=== PATIENT | female | born 1995 ===

== ENCOUNTER 2020-11-29 14:02 | Outpatient (REF) | payer MEDICAID, SELFPAY ==
[2020-11-30 08:52] LABS: BV Int Neg Control Negative (Negative); BV Int Pos Control Positive (Positive)
[2020-12-01 02:42] LABS: C. trachomatis RNA TMA NOT DETECTED (NOT DETECTED); N. gonorrhoeae RNA TMA NOT DETECTED (NOT DETECTED)
== END 2020-11-29 14:03 | disposition home or self-care (01) ==
LOC: HO.LAB 14:02
PROVIDERS: Visit Provider Advanced Practice Midwife
DX: Z01.419 Encounter for gynecological examination (general) (routine) without abnormal findings (principal); Z20.2 Contact with and (suspected) exposure to infections with a predominantly sexual mode of transmission
CPT/HCPCS: 82710; 87480; 87491; 87510; 87591; 87660

== ENCOUNTER → 2020-12-21 13:54 | Outpatient (BNVA) | payer MEDICAID, SELFPAY | PROVIDERS: Visit Provider Advanced Practice Midwife | DX: R03.0 Elevated blood-pressure reading, without diagnosis of hypertension (principal); Z34.90 Encounter for supervision of normal pregnancy, unspecified, unspecified trimester | CPT/HCPCS: 81025; 99212 ==

== ENCOUNTER → 2021-01-25 10:42 | Outpatient (BNVA) | payer MEDICAID, SELFPAY | PROVIDERS: Visit Provider Advanced Practice Midwife | DX: O09.899 Supervision of other high risk pregnancies, unspecified trimester (principal); O09.291 Supervision of pregnancy with other poor reproductive or obstetric history, first trimester; O10.919 Unspecified pre-existing hypertension complicating pregnancy, unspecified trimester | CPT/HCPCS: 81003; 99212 ==

== ENCOUNTER 2021-01-27 11:11 | Outpatient (REF) | payer MEDICAID, SELFPAY ==
--- NOTE | ~2021-01-27 | US_ITS ---
EXAMINATION: OBSTETRICAL ULTRASOUND, FIRST TRIMESTER HISTORY: 25-year-old at the 12.0 weeks of gestation NT screening COMPARISON: 12/25/2019 TECHNIQUE: Real time transabdominal imaging with color and M-mode Doppler. FINDINGS: A single, live IUP CRL of 50.0 mm c/w 11.6wks is noted. Heart Rate: 163 beats per minute. Normal yolk sac seen. NT was 1.39.mm. NB Present The embryo appears sonographically wnl for this GA. The left ovary is within normal limits. The right ovary was not seen. GESTATIONAL AGE: 1. Established GA: 12.0 wks 2. GA from [facility]: 11.6 wks ESTIMATED DATE OF DELIVERY: 1. Established RIVKA: 08/11/2021 2. RIVKA from [facility]: 08/12/2021 US/US OB 1T nuc measure IMPRESSION: 1. A single live IUP 2. Size equals dates 3. NT of 1.39 mm MFM Consultation: I reviewed the ultrasound findings along with significance of NT measurement. The NT of less than 3mm is generally reassuring. However, the sensitivity for T21 detection is only 60%. I reviewed the availability of serum aneuploidy screening which includes cell-free DNA and placental protein based tests. I discussed the sensitivity, false-positive rate, and other limitations associated with each test. I also reviewed the availability of invasive diagnostic tests that are associated small but definite risk of miscarriage. We also reviewed the differences between screening tests and diagnostic tests. After our discussion, she opted for the First trimester screening that is based on cell-free DNA or non-invasive testing (NIPT). The result will be faxed to your office in approximately 7 days. A follow up at 18 weeks for survey has been scheduled. Thank you very much for this referral. Majority of this visit was spent reviewing her care and counselling her in face to face time: Time spent 30 min.
== END 2021-01-27 11:12 | disposition home or self-care (01) ==
LOC: HO.US 11:11
PROVIDERS: Visit Provider Advanced Practice Midwife
DX: Z36.82 Encounter for antenatal screening for nuchal translucency (principal); O09.291 Supervision of pregnancy with other poor reproductive or obstetric history, first trimester; O13.1 Gestational [pregnancy-induced] hypertension without significant proteinuria, first trimester; Z3A.12 12 weeks gestation of pregnancy
CPT/HCPCS: 76813

== ENCOUNTER → 2021-02-13 13:59 | Outpatient (BNVA) | payer MEDICAID, SELFPAY | PROVIDERS: Visit Provider Advanced Practice Midwife ==

== ENCOUNTER → 2021-02-17 13:01 | Outpatient (BNVA) | payer MEDICAID, SELFPAY | PROVIDERS: Visit Provider Advanced Practice Midwife ==

== ENCOUNTER → 2021-07-24 15:18 | Outpatient (BNVA) | payer MEDICAID, SELFPAY | PROVIDERS: Visit Provider Advanced Practice Midwife | DX: N92.6 Irregular menstruation, unspecified (principal) | CPT/HCPCS: 81025; 99212 ==

== ENCOUNTER 2021-07-28 10:53 | Outpatient (REF) | payer MEDICAID, SELFPAY ==
--- NOTE | ~2021-07-28 | US_ITS ---
EXAMINATION: OBSTETRICAL ULTRASOUND, FIRST TRIMESTER HISTORY: 26-year-old with the uncertain dates Viability LMP: 06/04/2021 COMPARISON: None TECHNIQUE: Real time transabdominal imaging with color and M-mode Doppler. FINDINGS: A single, live IUP CRL of 10.2 mm c/w 7.1wks is noted. Heart Rate: 140 beats per minute. Both maternal ovaries are seen and appear normal. GESTATIONAL AGE: 1. GA from [facility]: 7.5 wks 2. GA from [facility]: 7.1 wks ESTIMATED DATE OF DELIVERY: 1. RIVKA from [facility]: 03/11/2022 2. RIVKA from [facility]: 03/15/2022 US/US OB pelvic and transvaginal IMPRESSION: 1. A single live IUP 2. CRL corresponds to 7.1 weeks confirming her LMP based RIVKA of 03/11/2022. 3. Normal ovaries and adnexa 4. No free fluid in the cul-de-sac No specific ultrasound followup appears needed at this time. The patient was advised that ultrasound cannot guarantee the of a normal infant. Thank you very much for this referral. This note was generated with a voice recognition program. Please excuse any errors which may have been overlooked during my review of this note. Sometimes these errors may affect the content or meaning of a given sentence.
== END 2021-07-28 10:54 | disposition home or self-care (01) ==
LOC: HO.US 10:53
PROVIDERS: Visit Provider Advanced Practice Midwife
DX: Z34.91 Encounter for supervision of normal pregnancy, unspecified, first trimester (principal)
CPT/HCPCS: 76801; 76817

== ENCOUNTER → 2021-08-16 09:54 | Outpatient (BNVA) | payer MEDICAID, SELFPAY | PROVIDERS: Visit Provider Advanced Practice Midwife | DX: Z34.81 Encounter for supervision of other normal pregnancy, first trimester (principal); Z3A.09 9 weeks gestation of pregnancy | CPT/HCPCS: 99212 ==

== ENCOUNTER 2021-08-25 13:04 | Outpatient (REF) | payer MEDICAID, SELFPAY ==
--- NOTE | ~2021-08-25 | US_ITS ---
EXAMINATION: OBSTETRICAL ULTRASOUND, FIRST TRIMESTER HISTORY: A 26-year-old at 11.5 weeks of gestation NT screening COMPARISON: 07/28/2021 TECHNIQUE: Real time transabdominal imaging with color and M-mode Doppler. FINDINGS: A single, live IUP CRL of 45.3 mm c/w 11.3wks is noted. Heart Rate: 158 beats per minute. Normal yolk sac seen. NT was 0.7.mm. NB Present The embryo appears sonographically wnl for this GA. Both maternal ovaries are seen and appear normal. GESTATIONAL AGE: 1. Established GA: 11.5 wks 2. GA from A[facility]: 11.3 wks ESTIMATED DATE OF DELIVERY: 1. Established RIVKA: 03/11/2022 2. RIVKA from [facility]: 03/13/2022 US/US OB 1T nuc measure IMPRESSION: 1. A single live IUP 2. Size equals dates 3. NT of 0.7 mm MFM Consultation: I reviewed the ultrasound findings along with significance of NT measurement. The NT of less than 3mm is generally reassuring. However, the sensitivity for T21 detection is only 60%. I reviewed the availability of serum aneuploidy screening which includes cell-free DNA and placental protein based tests. I discussed the sensitivity, false-positive rate, and other limitations associated with each test. I also reviewed the availability of invasive diagnostic tests that are associated small but definite risk of miscarriage. We also reviewed the differences between screening tests and diagnostic tests. After our discussion, she opted for the First trimester screening that is based on cell-free DNA or non-invasive testing (NIPT). The result will be faxed to your office in approximately 7 days. A follow up at 18 weeks for survey has been scheduled. Thank you very much for this referral. Total time 30 minutes. The time spent was devoted to counseling the patient about the disease and diagnosis, coordinating care including reviewing her records, pertinent lab data and studies, as well as discussing diagnostic evaluation and workup, plan therapeutic interventions and future disposition of care. This includes any additional research needed to obtain further information in formulating the plan of care of this patient. This note was generated with a voice recognition program. Please excuse any errors which may have been overlooked during my review of this note. Sometimes these errors may affect the content or meaning of a given sentence.
== END 2021-08-25 13:05 | disposition home or self-care (01) ==
LOC: HO.US 13:04
PROVIDERS: Visit Provider Advanced Practice Midwife
DX: Z32.01 Encounter for pregnancy test, result positive (principal)
CPT/HCPCS: 76813

== ENCOUNTER 2021-08-28 09:21 | Outpatient (REF) | payer MEDICAID, SELFPAY ==
[2021-08-28 16:17] LABS: CT PCR NOT DETECTED (Not Detect.); NG PCR NOT DETECTED (Not Detect.)
[2021-08-29 09:47] LABS: BV Int Neg Control Negative (Negative); BV Int Pos Control Positive (Positive)
== END 2021-08-28 09:22 | disposition home or self-care (01) ==
LOC: HO.LAB 09:21
PROVIDERS: Visit Provider Advanced Practice Midwife
DX: O16.1 Unspecified maternal hypertension, first trimester (principal); Z3A.12 12 weeks gestation of pregnancy; Z87.59 Personal history of other complications of pregnancy, childbirth and the puerperium
CPT/HCPCS: 87480; 87491; 87510; 87591; 87660; 88142; 99212

== ENCOUNTER → 2021-09-25 13:10 | Outpatient (BNVA) | payer MEDICAID, SELFPAY | PROVIDERS: Visit Provider Obstetrics & Gynecology | DX: Z34.82 Encounter for supervision of other normal pregnancy, second trimester (principal); Z3A.16 16 weeks gestation of pregnancy | CPT/HCPCS: 99212 ==

== ENCOUNTER 2021-10-20 12:28 | Outpatient (REF) | payer MEDICAID, SELFPAY ==
--- NOTE | ~2021-10-20 | US_ITS ---
EXAMINATION: US OBSTETRICAL CLINICAL INFORMATION: 26-year-old at 19.5 weeks of gestation Screening for anomaly COMPARISON: 08/25/2021 TECHNIQUE: Real-time transabdominal ultrasound was performed using C1-5 megahertz transducer. FINDINGS: A single, active, fetus is seen in vertex presentation. The placenta is posterior without previa, and the amniotic fluid volume is wnl. MEASUREMENTS: 1. Biparietal Diameter: 4.3 cm; 19.1 wks 2. Occipital Frontal Diameter: 5.6 cm 3. Head Circumference: 16.0 cm; 18.6 wks 4. Abdominal Circumference: 13.4 cm; 19.0 wks 5. Femur Length: 3.2 cm; 20.1 wks 6. Humerus Length: 3.0 cm; 19.6 wks 7. Tibia Length: 2.9 cm; 20.5 wks 8. Ulna Length: 2.7 cm; 20.1 wks 9. Lateral ventricle: 0.7 cm 10. Cerebellum: 1.9 cm; 19.2 wks 11. Cisterna Magna: 0.37 cm 12. Nuchal Fold: 4.1 mm 13. Heart Rate: 142 beats per minute Rt ovary: normal Lt ovary: normal Cervical length 4.5 cm on T/A. GESTATIONAL AGE: 1. Established GA: 19.5 wks 2. GA from [facility]: 19.2 wks ESTIMATED DATE OF DELIVERY: 1. Established RIVKA: 03/11/2022 2. RIVKA from [facility]: 03/14/2022 ANATOMY: The views of the CSP, 3 vessel umbilical cord were suboptimal due to position. Right renal pelvis: 0.5 cm consistent with pyelectasis. The visualized anatomy includes but not limited to: 1. Cranium: Normal 2. Intracranial anatomy: lateral ventricles, choroid plexus, cerebellum, posterior fossa, third and fourth ventricles. 3. face: orbits, lip/palate, profile, nasal bone 4. Heart: four-chamber view of the heart, ventricular septum, foramen ovale, pulmonary vein, left and right outflow tracts, three-vessel view, 3 vessel trachea view, aortic and ductal arches, situs.. 5. Diaphragm: Normal 6. Abdominal wall: Normal 7. Cord Insertion: Normal 8. Spine: Cervical, thoracic, lumbar, sacral. 9. Stomach: Normal size and shape 10. Right Kidney: Pyelectasis 11. Left Kidney: Normal 12. 3 vessel cord: Normal 13. Upper extremity: Open hands, fifth digit. 14. Lower extremity: Tibia, fibula, bilateral feet. 15. Bladder: Normal 16. Genitalia: Female, patient aware US/US OB /maternal detail IMPRESSION: 1. Single, living, intrauterine with appropriate biometry. 2. Limited the survey due to position. The right pyelectasis. DISCUSSION: I reviewed today's ultrasound findings. We discussed the limitations of ultrasound in diagnosing aneuploidy and other congenital abnormalities. I reviewed the differences between screening test and diagnostic test. Amniocentesis was discussed and declined. I reviewed the clinical significance of pyelectasis seen at this age. The sonographic findings today were suggestive of UPJ reflux. I reassured her that this is a completely benign finding and in the majority of cases, it will resolve spontaneously by term. She was informed that the baseline incidence of congenital abnormalities is approximately 3-5%. Not all these conditions are diagnosable in utero. RECOMMENDATIONS: 1. Follow-up in 4 weeks (scheduled). Thank you for allowing me to participate in her care. Total time 30 minutes. The time spent was devoted to counseling the patient about the disease and diagnosis, coordinating care including reviewing her records, pertinent lab data and studies, as well as discussing diagnostic evaluation and workup, plan therapeutic interventions and future disposition of care. This includes any additional research needed to obtain further information in formulating the plan of care of this patient. This note was generated with a voice recognition program. Please excuse any errors which may have been overlooked during my review of this note. Sometimes these errors may affect the content or meaning of a given sentence.
== END 2021-10-20 12:29 | disposition home or self-care (01) ==
LOC: HO.US 12:28
PROVIDERS: Visit Provider Advanced Practice Midwife
DX: O35.9XX0 Maternal care for (suspected) fetal abnormality and damage, unspecified, not applicable or unspecified (principal); Z3A.19 19 weeks gestation of pregnancy
CPT/HCPCS: 76811

== ENCOUNTER → 2021-10-23 08:52 | Outpatient (BNVA) | payer MEDICAID, SELFPAY | PROVIDERS: Visit Provider Obstetrics & Gynecology | DX: O36.8920 Maternal care for other specified fetal problems, second trimester, not applicable or unspecified (principal); Z3A.20 20 weeks gestation of pregnancy | CPT/HCPCS: 99212 ==

== ENCOUNTER 2021-11-17 11:01 | Outpatient (REF) | payer MEDICAID, SELFPAY ==
--- NOTE | ~2021-11-17 | US_ITS ---
EXAMINATION: OBSTETRICAL ULTRASOUND, Follow up HISTORY: 26-year-old at 23.5 weeks of gestation Right pyelectasis History of preeclampsia Suboptimal views of the CSP and 3 vessel trachea view COMPARISON: 10/20/2021 TECHNIQUE: Real time transabdominal imaging with color and M-mode Doppler. PRESENTATION: Vertex PLACENTA LOCATION: Posterior without previa AMNIOTIC FLUID: Normal MEASUREMENTS: 1. Biparietal Diameter: 5.4 cm; 22.5 wks 2. Head Circumference: 19.9 cm; 22.1 wks 3. Abdominal Circumference: 18.4 cm; 23.2 wks 4. Femur Length: 4.4 cm; 24.3 wks 5. Heart Rate: 126 beats per minute WEIGHT: EFW: 610 grams (1 lbs 6 oz) -- 36 %. The right renal pelvis measured as 0.56 cm. No hydroureter or caliectasis. This is suggestive of UPJ reflux. The left side is normal. The three-vessel trachea view was still suboptimal. GESTATIONAL AGE: 1. Established GA: 23.5 wks 2. GA from [facility]: 23.1 wks ESTIMATED DATE OF DELIVERY: 1. Established RIVKA: 03/11/2021 2. RIVKA from [facility]: 03/15/2021 US/US OB follow up IMPRESSION: 1. A single active fetus is in the vertex presentation 2. Size equals dates 3. Persistent right pyelectasis I informed the patient that the right pyelectasis is still present. However it appears stable without evidence of hydronephrosis. She is scheduled for follow-up in 6 weeks. Thank you very much for this referral. Total time 20 minutes. The time spent was devoted to counseling the patient about the disease and diagnosis, coordinating care including reviewing her records, pertinent lab data and studies, as well as discussing diagnostic evaluation and workup, plan therapeutic interventions and future disposition of care. This includes any additional research needed to obtain further information in formulating the plan of care of this patient. This note was generated with a voice recognition program. Please excuse any errors which may have been overlooked during my review of this note. Sometimes these errors may affect the content or meaning of a given sentence.
== END 2021-11-17 11:02 | disposition home or self-care (01) ==
LOC: HO.US 11:01
PROVIDERS: Visit Provider Advanced Practice Midwife
DX: Z34.90 Encounter for supervision of normal pregnancy, unspecified, unspecified trimester (principal); Z36.3 Encounter for antenatal screening for malformations; Z87.59 Personal history of other complications of pregnancy, childbirth and the puerperium
CPT/HCPCS: 76816

== ENCOUNTER → 2021-11-23 14:17 | Outpatient (BNVA) | payer MEDICAID, SELFPAY | PROVIDERS: Visit Provider Obstetrics & Gynecology | DX: O26.892 Other specified pregnancy related conditions, second trimester (principal); N13.30 Unspecified hydronephrosis | CPT/HCPCS: 99212 ==

== ENCOUNTER → 2021-12-21 14:11 | Outpatient (BNVA) | payer MEDICAID, SELFPAY | PROVIDERS: Visit Provider Advanced Practice Midwife | DX: O35.8XX0 Maternal care for other (suspected) fetal abnormality and damage, not applicable or unspecified (principal); O09.293 Supervision of pregnancy with other poor reproductive or obstetric history, third trimester; O99.343 Other mental disorders complicating pregnancy, third trimester; F41.9 Anxiety disorder, unspecified; F32.A Depression, unspecified; Z3A.28 28 weeks gestation of pregnancy; Z23 Encounter for immunization | CPT/HCPCS: 90471; 90715; 99212 ==

== ENCOUNTER → 2022-01-08 12:12 | Outpatient (BNVA) | payer MEDICAID, SELFPAY | PROVIDERS: PCP Internal Medicine; Visit Provider Obstetrics & Gynecology | DX: Z34.83 Encounter for supervision of other normal pregnancy, third trimester (principal); Z3A.31 31 weeks gestation of pregnancy | CPT/HCPCS: 99212 ==

== ENCOUNTER 2022-01-12 11:41 | Outpatient (REF) | payer MEDICAID, SELFPAY ==
--- NOTE | ~2022-01-12 | US_ITS ---
EXAMINATION: OBSTETRICAL ULTRASOUND, Follow up HISTORY: A 26-year-old at the 31.5 weeks of gestation High BMI Size date discrepancy COMPARISON: 11/17/2021 TECHNIQUE: Real time transabdominal imaging with color and M-mode Doppler. PRESENTATION: Vertex PLACENTA LOCATION: Posterior without previa AMNIOTIC FLUID: LISA 11.0 cm MEASUREMENTS: 1. Biparietal Diameter: 7.3 cm; 29.1 wks 2. Head Circumference: 27.2 cm; 29.5 wks 3. Abdominal Circumference: 26.24 cm; 30.3 wks 4. Femur Length: 5.7 cm; 30.0 wks 5. Heart Rate: 143 beats per minute WEIGHT: EFW: 1504 grams (3 lbs 5 oz) -- 5 %. BIOPHYSICAL PROFILE: Motion: 2 Tone: 2 Breathin Amniotic Fluid: 2 Total score: 8/8 UA Doppler showed SD ratio of 3.8 GESTATIONAL AGE: 1. Established GA: 31.5 wks 2. GA from [facility]: 29.6 wks ESTIMATED DATE OF DELIVERY: 1. Established RIVKA: 03/11/2022 2. RIVKA from [facility]: 03/24/2022 US/US OB velocimetry umbilical ar IMPRESSION: 1. A single active fetus is in vertex presentation 2. Size less than dates, EFW corresponds to 5th percentile 3. Reassuring biophysical profile with normal LISA 4. Normal SD ratio in the umbilical artery We reviewed today's findings as well as the limitations of ultrasound and estimating weights. Approximately 70% of fetuses whose EFW falls below 10th percentile are constitutionally small but healthy fetuses growing to their full genetic potential. Approximately 30% may be experiencing placental insufficiency and are not growing to their full genetic potential. Often it is difficult to distinguish the 2 in utero. We discussed the various sonographic signs of placental insufficiency. Today's evaluation was reassuring. She has a son was weight was approximately 6 pounds. He is healthy and doing well. She is to begin weekly testing (scheduled). Thank you very much for this referral. Total time 30 minutes. The time spent was devoted to counseling the patient about the disease and diagnosis, coordinating care including reviewing her records, pertinent lab data and studies, as well as discussing diagnostic evaluation and workup, plan therapeutic interventions and future disposition of care. This includes any additional research needed to obtain further information in formulating the plan of care of this patient. This note was generated with a voice recognition program. Please excuse any errors which may have been overlooked during my review of this note. Sometimes these errors may affect the content or meaning of a given sentence.
== END 2022-01-12 11:42 | disposition home or self-care (01) ==
LOC: HO.US 11:41
PROVIDERS: PCP Internal Medicine; Visit Provider Advanced Practice Midwife
DX: O26.843 Uterine size-date discrepancy, third trimester (principal); Z3A.31 31 weeks gestation of pregnancy; Z87.59 Personal history of other complications of pregnancy, childbirth and the puerperium
CPT/HCPCS: 76816; 76820

== ENCOUNTER → 2022-01-17 09:08 | Outpatient (BNVA) | payer MEDICAID, SELFPAY | PROVIDERS: PCP Internal Medicine; Visit Provider Advanced Practice Midwife | DX: O36.5930 Maternal care for other known or suspected poor fetal growth, third trimester, not applicable or unspecified (principal); Z3A.32 32 weeks gestation of pregnancy | CPT/HCPCS: 59025; 81003; 99212 ==

== ENCOUNTER 2022-01-19 12:02 | Outpatient (REF) | payer MEDICAID, SELFPAY ==
--- NOTE | ~2022-01-19 | US_ITS ---
EXAMINATION: US OBSTETRICAL (BIOPHYSICAL PROFILE) CLINICAL INFORMATION: 26-year-old at 32.5 weeks of gestation growth restriction Biophysical profile COMPARISON: 01/12/2022 TECHNIQUE: Biophysical profile is performed over 30 minutes with assessment of breathing, gross body movement, tone, and qualitative amniotic fluid volume. FINDINGS: POSITION: Cephalic PLACENTA: Posterior without previa AMNIOTIC FLUID INDEX: 11 cm CARDIAC ACTIVITY: 147 beats per minute BIOPHYSICAL PROFILE: Motion: 2 Tone: 2 Breathin Amniotic Fluid: 2 The total biophysical score is 8/8 UA Doppler: S/D 3.2 US/US OB velocimetry umbilical ar IMPRESSION: 1. Single intrauterine gestation in vertex position. 2. Reassuring BPP and LISA 3. Normal SD in the umbilical artery I reviewed today's findings and gave her reassurance. The estimated date done next week. Informed her that as long as there is an appropriate interval growth, we can manage her expectantly until approximately 39 weeks of gestation. Her most recent the delivery was of a healthy girl with weight of 6 lbs. 2 oz. Thank you for allowing me to participate in her care. Total time 20 minutes. The time spent was devoted to counseling the patient about the disease and diagnosis, coordinating care including reviewing her records, pertinent lab data and studies, as well as discussing diagnostic evaluation and workup, plan therapeutic interventions and future disposition of care. This includes any additional research needed to obtain further information in formulating the plan of care of this patient. This note was generated with a voice recognition program. Please excuse any errors which may have been overlooked during my review of this note. Sometimes these errors may affect the content or meaning of a given sentence.
--- NOTE | ~2022-01-19 | US_ITS ---
EXAMINATION: US OBSTETRICAL (BIOPHYSICAL PROFILE) CLINICAL INFORMATION: 26-year-old at 32.5 weeks of gestation growth restriction Biophysical profile COMPARISON: 01/12/2022 TECHNIQUE: Biophysical profile is performed over 30 minutes with assessment of breathing, gross body movement, tone, and qualitative amniotic fluid volume. FINDINGS: POSITION: Cephalic PLACENTA: Posterior without previa AMNIOTIC FLUID INDEX: 11 cm CARDIAC ACTIVITY: 147 beats per minute BIOPHYSICAL PROFILE: Motion: 2 Tone: 2 Breathin Amniotic Fluid: 2 The total biophysical score is 8/8 UA Doppler: S/D 3.2 US/US OB biophysical profile IMPRESSION: 1. Single intrauterine gestation in vertex position. 2. Reassuring BPP and LISA 3. Normal SD in the umbilical artery I reviewed today's findings and gave her reassurance. The estimated date done next week. Informed her that as long as there is an appropriate interval growth, we can manage her expectantly until approximately 39 weeks of gestation. Her most recent the delivery was of a healthy girl with weight of 6 lbs. 2 oz. Thank you for allowing me to participate in her care. Total time 20 minutes. The time spent was devoted to counseling the patient about the disease and diagnosis, coordinating care including reviewing her records, pertinent lab data and studies, as well as discussing diagnostic evaluation and workup, plan therapeutic interventions and future disposition of care. This includes any additional research needed to obtain further information in formulating the plan of care of this patient. This note was generated with a voice recognition program. Please excuse any errors which may have been overlooked during my review of this note. Sometimes these errors may affect the content or meaning of a given sentence.
== END 2022-01-19 12:03 | disposition home or self-care (01) ==
LOC: HO.US 12:02
PROVIDERS: PCP Internal Medicine; Visit Provider Advanced Practice Midwife
DX: O36.5930 Maternal care for other known or suspected poor fetal growth, third trimester, not applicable or unspecified (principal); O16.3 Unspecified maternal hypertension, third trimester; Z87.59 Personal history of other complications of pregnancy, childbirth and the puerperium; Z3A.32 32 weeks gestation of pregnancy
CPT/HCPCS: 76819; 76820

== ENCOUNTER 2023-05-14 09:57 | Outpatient (REF) | payer MEDICAID, SELFPAY ==
[2023-05-14 16:07] LABS: CT PCR NOT DETECTED (Not Detect.); NG PCR NOT DETECTED (Not Detect.)
[2023-05-21 22:13] LABS: HPV mRNA E6/E7 rflx Not Detected (Not Detected)
== END 2023-05-14 09:58 | disposition home or self-care (01) ==
LOC: HO.LNP 09:57
PROVIDERS: PCP Internal Medicine; Visit Provider Advanced Practice Midwife
DX: Z01.419 Encounter for gynecological examination (general) (routine) without abnormal findings (principal); Z11.51 Encounter for screening for human papillomavirus (HPV); Z20.2 Contact with and (suspected) exposure to infections with a predominantly sexual mode of transmission
CPT/HCPCS: 0353U; 87624; 88142

== ENCOUNTER 2024-05-19 08:53 | Outpatient (REF) | payer MEDICAID, SELFPAY ==
[2024-05-20 04:16] LABS: CT PCR NOT DETECTED (Not Detect.); NG PCR NOT DETECTED (Not Detect.)
[2024-05-20 08:59] LABS: Bacterial Vaginosis PCR NEGATIVE (Negative); Candida Group PCR DETECTED (Not Detect); Candida glab krusei PCR NOT DETECTED (Not Detect); Trichomonas vaginalis PCR NOT DETECTED (Not Detect)
== END 2024-05-19 08:54 | disposition home or self-care (01) ==
LOC: HO.LAB 08:53
PROVIDERS: PCP Internal Medicine; Visit Provider Advanced Practice Midwife
DX: Z01.419 Encounter for gynecological examination (general) (routine) without abnormal findings (principal)
CPT/HCPCS: 0352U; 0353U; 99395

== ENCOUNTER 2024-05-19 08:53 | Outpatient (AMB) | payer MEDICAID, SELFPAY ==
--- NOTE | 2024-05-19 08:56 | A.OFFVIS_ITS ---
Vital Signs 05/19/24 08:57 Height 5 ft 7 in Weight 194 lb 8 oz BMI 30.5 BP 140/92 H Blood Pressure Location Rt brachial Position Sitting Intake Visit Reasons: [employer] annual exam Allergies apple [Apple] Allergy (Severe, Verified 05/19/24 08:58) SWELLING HPI Comments Details: She is a premenopausal woman presenting for annual examination. Doing well with no concerns. She tries to eat healthy and stays active with exercise-walking, stairs at home. Regular monthly menses x6-7d. Currently is not sexually active x3yrs. She denies vaginal itching and irritation. STI screening offered; she accepts, declines bloodwork. Denies family history of breast, ovarian or colon cancer. Last pap smear 2022, negative. [facility] Medical History (Updated 05/19/24 @ 09:04 by Bárbara Wylie CNM) History of severe pre-eclampsia Chronic hypertension Surgical History Hx of tubal ligation Family History Mother No problems noted. Social History Household Members: Children Alcohol intake: never Patient Tobacco Use Status: Never used Tobacco Sexual orientation: Straight/Heterosexual Gender identity: Female Female Reproductive History Menstrual Age of Menarche: 11 Duration of menses: 6-7 days Date of last menstrual period: 05/05/24 control method: none Total pregnancies: 4 Full term: 4 Date of last pap smear: 05/16/23 History of abnormal pap smear: No History of STI: No Review of Systems Const All systems reviewed & are unremarkable except as noted in HPI and below Reports as per HPI Eyes Reports no additional complaints ENT Reports no additional complaints Card Reports no additional complaints Resp Reports no additional complaints GI Reports as per HPI and Reports no additional complaints Reports as per HPI Musc Reports no additional complaints Skin/Breast Reports as per HPI Neuro Reports no additional complaints Psych Reports no additional complaints Endo Reports no additional complaints Edson/Lymph Reports no additional complaints Aller/Immun Reports no additional complaints Physical Exam Vital Signs: Last Vital Signs BP 140/92 H 05/19/24 08:57 BMI result Body Mass Index 30.5 Const General: cooperative, healthy appearing, no acute distress, well developed and alert Orientation/consciousness: patient oriented x3 HEENT Head: Yes normal to inspection Eyes General: appearance normal, both eyes and all related structures Neck Neck: Yes normal visual inspection Thyroid: Thyroid normal Chest Chest palpation & inspection: normal inspection of the chest and other (no puckering, dimpling, peau de orange, retraction, discharge, masses) Breast/axilla inspection: normal inspection of the breasts Breast/axilla palpation: normal palpation of the breasts Resp Effort & Inspection: normal respiratory effort GI Inspection: Yes normal to inspection Palpation (GI): Soft to palpation Rectal Exam - Female: deferred General: Yes bladder normal to palpation External Female Exam: normal external appearance and normal appearance of the urethra Speculum Exam - Vagina: normal appearance of the vagina, normal palpation and normal vaginal discharge Speculum Exam - Cervix: normal appearance of the cervix and normal palpation Bimanual exam- vagina & uterus: normal bimanual exam, normal palpation, uterine size normal, bladder normal to palpation, normal palpation and non-tender Bimanual Exam- Adnexa, other: no masses Skin General skin exam: no rashes or lesions noted Rashes: no rashes Neuro General: patient oriented x3 Cognition (Neuro): normal cognition Extrem General: Yes normal to inspection Psych Attitude: cooperative Thought process: Normal thought process present Assessment & Plan Assessment & Plan (1) Well woman exam with routine gynecological exam: Code(s): Z01.419 - Encounter for gynecological examination (general) (routine) without abnormal findings Category: Medical Plan Discussed: Current recommendations for pap smears per ASCCP guidelines. Breast awareness and periodic breast exams. Maintain a healthy lifestyle including a well balanced diet and routine exercise. Use condoms for STI prevention. Patient verbalizes understanding and agrees to the plan of care. She was given opportunity to ask questions and all questions were answered to the best of my ability. 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 This note is constructed using voice recognition software. While every effort has been made to ensure accuracy, supervisor cloth winding errors may have been included. Coding Level of Care Code Est Pt Prev Care 18-39y([id number]) Diagnoses Well woman exam with routine gynecological exam Z01.419
[2024-05-19 08:57] VITALS: BP 140/92; BMI 30.5
== END 2024-05-19 09:20 | disposition home or self-care (01) ==
PROVIDERS: PCP Internal Medicine; Visit Provider Advanced Practice Midwife
DX: Z01.419 Encounter for gynecological examination (general) (routine) without abnormal findings (principal)
CPT/HCPCS: 99395

== ENCOUNTER 2024-05-19 09:17 | Outpatient (REF) | payer MEDICAID, SELFPAY | END 2024-05-19 09:18 | disposition home or self-care (01) | LOC: HO.LNP 09:17 | PROVIDERS: Visit Provider Advanced Practice Midwife | DX: Z13.89 Encounter for screening for other disorder (principal) ==